=== PATIENT | female | born 1950 | race Caucasian/White ===

== ENCOUNTER 2017-01-07 07:47 | Day surgery (SDC) | payer MEDICARE, BC ==
[~2017-01-07 07:47] MED LIST: LIDOCAINE HCL 1% MPF SOL ONE; PROPOFOL 500 MG/50 ML EMU IV ONE
[2017-01-07 09:41] VITALS: O2SAT 98
[2017-01-07 10:10] VITALS: RESP 20; TEMP 97
[2017-01-07 10:14] VITALS: BP 146/96; PULSE 55
== END 2017-01-07 10:25 | disposition home or self-care (01) | DRG 951 ==
LOC: SURG 07:47
PROVIDERS: ATTEND Surgery
DX: Z12.11 Encounter for screening for malignant neoplasm of colon (principal); K57.30 Diverticulosis of large intestine without perforation or abscess without bleeding
CPT/HCPCS: J2001; J2704

== ENCOUNTER 2017-10-26 22:16 | Emergency (ER) | payer MEDICARE, BC ==
[2017-10-26] MEDS ORDERED: SOLUMEDROL 125 MG/2 ML 125 MG/2 ML PDS IV ONE (22:42)
[2017-10-26] MEDS ORDERED: ONDANSETRON HCL 4 MG/2 ML SOL IV ONE (22:42)
[2017-10-26] MEDS ORDERED: ALBUTEROL/IPRATROPIUM 1 VIAL SOL INH ONE (22:43)
[2017-10-26] MEDS ORDERED: SODIUM CHLORIDE 0.9% 1000ML 1,000 ML IV SCH (22:45)
[2017-10-26] MEDS ORDERED: ALBUTEROL/IPRATROPIUM 1 VIAL SOL ONE (22:54)
[2017-10-26] MEDS ORDERED: ONDANSETRON HCL 4 MG/2 ML SOL ONE (22:58)
[2017-10-26] MEDS ORDERED: SOLUMEDROL 125 MG/2 ML 125 MG/2 ML PDS ONE (23:04)
[2017-10-27 00:51] VITALS: BP 150/96; PULSE 93; RESP 20; O2SAT 97
[2017-10-27 01:05] VITALS: TEMP 97.3
== END 2017-10-27 00:33 | disposition home or self-care (01) | DRG 203 ==
LOC: ED 22:16
DX: J45.901 Unspecified asthma with (acute) exacerbation (principal)
CPT/HCPCS: 96365; 96374; 96375; 99284; J2405; J2930